=== PATIENT | female | born 1960 | race African-American/Black ===

== ENCOUNTER → 2018-09-24 | Outpatient (CLI) | payer OTHER ==
[~2018-09-24] MED LIST: CONTRAST GIVEN. MC PRN; IOHEXOL 240 MG/ML 50ML VIAL. PO ONE; IOHEXOL 300 MG/ML 100ML VIAL. IV ONE
[2018-09-24 13:54] LABS: CREATININE 0.7 mg/dL (0.6-1.0); GFR 103.3
--- NOTE | 2018-09-24 15:34 | RAD ---
CT Abdomen and Pelvis With Intravenous Contrast: History: Ventral hernia. Multiple previous hernia repairs. Nephrectomy. Comparison: CT abdomen pelvis June 27, 2009. Technique: After administration of oral and intravenous contrast, 75 mL Omnipaque-300, CT of the abdomen and pelvis was performed. Exposure: One or more of the following individualized dose reduction techniques were utilized for this examination: 1. Automated exposure control 2. Adjustment of the mA and/or kV according to patient size 3. Use of iterative reconstruction technique Findings: Mild fatty liver disease is seen. Spleen, pancreas, and bilateral adrenal glands are unremarkable. Left kidney enhances appropriately. Right kidney is absent. There is no evidence of bowel obstruction or inflammation. Uterus and adnexa have unremarkable appearance. Appendix is without evidence of inflammation. There is interval development of a several ventral hernias. There are 2 adjacent epigastric ventral hernias located to the right and to the left of midline. These are located about 8 cm superior to the umbilicus. Each of these hernia defects contains one wall of a loop of small bowel (Hughes hernia), and there is no evidence of obstruction. Each of these hernia defects is estimated to measure about 1.3 cm. There is an additional umbilical hernia which contains a loop of bowel. This hernia defect is estimated measure about 2 cm. Inferior to the umbilicus, there is thought to be a diastasis of the rectus abdominous musculature which contains a several loops of small bowel. No free air or free fluid is seen. There is atypical curvilinear density involving the inferior vena cava as well as both iliac veins. These could be portions of fragmented IVC filter versus small amount of radiodense cement within the veins versus atypical calcification; this finding is unchanged. Degenerative changes are present in the spine. Impression: 1. There are 3 small ventral hernias. There are 2 epigastric ventral hernias adjacent to each other. Additional umbilical hernia is present. All of these hernias contain portions of bowel, but no bowel obstruction is identified. 2. Right nephrectomy. Electronically signed by: London Garcia MD (09/24/2018 3:30 PM) [place] [id number]
== END | disposition home or self-care (01) ==
LOC: CT 14:03
PROVIDERS: ATTEND Specialist
DX: K43.9 Ventral hernia without obstruction or gangrene (principal); K42.9 Umbilical hernia without obstruction or gangrene; K76.0 Fatty (change of) liver, not elsewhere classified
CPT/HCPCS: 36415; 74177; 82565; Q9966; Q9967

== ENCOUNTER → 2021-04-29 | Outpatient (CLI) | payer MEDICARE ==
[~2021-04-29] MED LIST changes: -CONTRAST GIVEN. MC PRN
[2021-04-29 14:22] LABS: CREATININE 0.9 mg/dL (0.6-1.0); GFR 76.5
--- NOTE | 2021-04-30 13:43 | RAD ---
EXAM: CT ABDOMEN/PELVIS WITH CONTRAST. HISTORY: Ventral hernia. TECHNIQUE: Computed tomography of the abdomen and pelvis was performed after the intravenous administ ration of iodinated contrast. One or more of the following individualized dose reduction techniques w ere utilized for this examination: 1. Automated exposure control. 2. Adjustment of the mA and/or kV according to patient size. 3. Use of iterative reconstruction technique. COMPARISON: 09/24/2018. FINDINGS: Lung windows through the visualized portions of the bases reveal mild bilateral atelectasis and scarring. Bone windows reveal no suspicious lesions. The hepatic inferior vena cava is very narrowed. The hepatic veins are not well seen. The portal vein remains patent. There are no focal hepatic lesions. The intrahepatic inferior vena cava contains sandra ear calcifications consistent with chronic nonocclusive thrombus. These extend into the left greater than right common femoral arteries. Venous collaterals are noted in the left para-aortic region and l eft hemipelvis, versus an ovarian vein varix. The spleen is not enlarged. The gallbladder is either surgically absent or completely decompressed. T he adrenal glands and spleen are unremarkable. The right kidney is absent. The left kidney is somewha t inferiorly place along the superior aspect of the false pelvis. There are no pathologically enlarge d lymph nodes. There is a complex multicompartment ventral hernia composed of multiple small fascial defects. The in volved region spans 15 cm craniocaudally and is extends to the right and left of midline. In the supr aumbilical region, 2 small fascial defects contain nonobstructed small bowel loops. More inferiorly, another 4 cm fascial defect contains a nonobstructed bowel. Just to the right of the umbilicus, anoth er small fascial defect contains a nonobstructed small bowel. IMPRESSION: 1. Complex ventral hernia spanning 15 cm craniocaudally, composed of 5 small to moderate fascial defe cts to the right and left of midline as detailed above. Each defect contains nonobstructed small colleen l loops. 2. 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 The hepatic veins are no t well visualized. Correlate for prior Budd-Chiari syndrome. 3. 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 Left para -aortic and pelvic venous collaterals. The infrahepatic inferior vena cava appears to remain patent. Electronically signed by: Shay Roa MD (04/30/2021 8:45 AM) [id number]
== END ==
LOC: CT 13:25
PROVIDERS: ATTEND Specialist
DX: K43.9 Ventral hernia without obstruction or gangrene (principal); J98.11 Atelectasis; J98.4 Other disorders of lung; I82.413 Acute embolism and thrombosis of femoral vein, bilateral
CPT/HCPCS: 36415; 74177; 82565; Q9966; Q9967